=== PATIENT | female | born 1985 | race Caucasian/White ===

== ENCOUNTER 2018-04-22 15:16 | Emergency (ER) | payer SELFPAY ==
[~2018-04-22] VITALS: Ht 167.6 cm; Wt 84.1 kg
[2018-04-22 16:07] LABS: BASOPHILS % (AUTO) 0.5 % (0.0-2.0); EOSINOPHILS % (AUTO) 1.2 % (1.0-6.0); HEMATOCRIT 36.4 % (36-46); HEMOGLOBIN 12.3 g/dL (12.0-16.0); LYMPHOCYTES # (AUTO) 2.7 K/uL (1.0-4.8); LYMPHOCYTES % (AUTO) 21.5 % (22.0-44.0); MEAN CORPUSCULAR HEMOGLOBIN 28.1 pg (26.0-34.0); MEAN CORPUSCULAR HGB CONC 33.7 G/dL (31.0-37.0); MEAN CORPUSCULAR VOLUME 83 fL (80-100); MONOCYTES # (AUTO) 0.7 K/uL (0.1-1.0); MONOCYTES % (AUTO) 5.7 % (2.0-9.0); NEUTROPHILS % (AUTO) 71.1 % (40.0-70.0); PLATELET COUNT (AUTO) 238 K/uL (150-450); RED BLOOD CELL COUNT(AUTO) 4.37 MIL/uL (4.00-5.20); RED CELL DISTRIBUTION WIDTH 14.5 % (11.5-14.5)
[2018-04-22 16:19] LABS: ANION GAP 11 mmol/L (8-16); CALCIUM, TOTAL 9.6 mg/dL (8.8-10.5); CARBON DIOXIDE 25 mmol/L (22-29); CHLORIDE 101 mmol/L (98-107); CREATININE 1.31 mg/dL (0.60-1.30); GLOMERULAR FILTR. RATE CALC 46 mL/min (>60); GLUCOSE,RANDOM 107 mg/dL (70-110); POTASSIUM 4.2 mmol/L (3.5-5.1); SODIUM SERUM 137 mmol/L (136-145); UREA NITROGEN, BLOOD 20 mg/dL (7-18)
[2018-04-22] MEDS ORDERED: BUPR100 PO (16:22)
[2018-04-22] MEDS ORDERED: GABA-531 PO (16:22)
[2018-04-22] MEDS ORDERED: LISD40CA PO (16:22)
[2018-04-22] MEDS ORDERED: VENL50TA44 PO (16:22)
[2018-04-22] MEDS ORDERED: CLON-570 PO (16:22)
[2018-04-22 16:24] LABS: GLUCOSE,POINT OF CARE 120 MG/DL (70-110)
[2018-04-22] MEDS ORDERED: VENL-67 PO (16:24)
[2018-04-22] MEDS ORDERED: BUPR-93 PO (16:24)
[2018-04-22 16:26] LABS: ALANINE AMINOTRANSFERASE 76 U/L (12-78); ALBUMIN 3.8 g/dL (3.4-5.0); ALKALINE PHOSPHATASE 96 U/L (46-116); ASPARTATE AMINOTRANSFERASE 27 U/L (15-37); BILIRUBIN,TOTAL 0.4 mg/dL (0.1-1.0); TOTAL PROTEIN, SERUM 7.1 g/dL (6.4-8.2)
[2018-04-22 17:27] LABS: HCG,QUANTITATIVE < 1 mIU/mL (0-6)
[2018-04-22 17:40] LABS: BILIRUBIN,URINE NEGATIVE (NEGATIVE); GLUCOSE, URINE (UA) NEGATIVE (NEGATIVE); KETONES,URINE NEGATIVE (NEGATIVE); LEUKOCYTE ESTERASE ,URINE NEGATIVE (NEGATIVE); NITRATE,URINE NEGATIVE (NEGATIVE); OCCULT BLOOD,URINE NEGATIVE (NEGATIVE); PH,URINE 5.5 (5.0-8.0); UROBILINOGEN,URINE 0.2 mg/dL (<=1.0)
[2018-04-22 17:43] LABS: APPEARANCE,URINE CLEAR (CLEAR); PROTEIN,URINE NEGATIVE (NEGATIVE)
[2018-04-22] MEDS ORDERED: MET750 PO (18:42)
[2018-04-22] MEDS ORDERED: ONDA4 PO (18:42)
[2018-04-22] MEDS ORDERED: QUET200T PO (18:42)
[2018-04-22] MEDS ORDERED: LITH150C PO (18:42)
[2018-04-22] MEDS ORDERED: HYDR50CA10 PO (18:44)
[2018-04-22 19:25] LABS: AMPHET/METH SCREEN,URINE NEGATIVE (NEGATIVE); BARBITURATE SCREEN, URINE NEGATIVE (NEGATIVE); BENZODIAZEPINES SCREEN,URINE NEGATIVE (NEGATIVE); CANNABINOID SCREEN,URINE NEGATIVE (NEGATIVE); COCAINE SCREEN,URINE NEGATIVE (NEGATIVE); METHADONE SCREEN, URINE NEGATIVE (NEGATIVE); OPIATE SCREEN,URINE POSITIVE (NEGATIVE)
[2018-04-22 19:31] LABS: PHENCYCLIDINE SCREEN,URINE NEGATIVE (NEGATIVE)
[2018-04-22 19:33] VITALS: BP 89/59
== END 2018-04-22 19:45 | disposition home or self-care (01) ==
LOC: EMS 15:18
DX: F31.9 Bipolar disorder, unspecified (principal); F41.9 Anxiety disorder, unspecified; I10 Essential (primary) hypertension; F10.10 Alcohol abuse, uncomplicated; Y90.0 Blood alcohol level of less than 20 mg/100 ml; Z88.0 Allergy status to penicillin
CPT/HCPCS: 36415; 80053; 80307; 81003; 82962; 84702; 85025; 99285; G0480

== ENCOUNTER 2018-05-19 17:58 | Emergency (ER) | payer SELFPAY ==
[~2018-05-19 17:58] MED LIST: BUPR-93 PO; CLON-570 PO; GABA-531 PO; HYDR50CA10 PO; LISD40CA PO; LITH150C PO; MET750 PO; ONDA4 PO; QUET200T PO; VENL-67 PO
== END 2018-05-19 18:54 | disposition left against medical advice (07) ==
LOC: EMS 18:00
DX: R45.851 Suicidal ideations (principal); Z53.21 Procedure and treatment not carried out due to patient leaving prior to being seen by health care provider